=== PATIENT | male | born 1950 | race Caucasian/White ===

== ENCOUNTER 2016-12-17 22:43 | Emergency (ER) | payer OTHER ==
[~2016-12-17] VITALS: Ht 170.2 cm; Wt 80.0 kg
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
[2016-12-17 22:59] VITALS: Ht 170.2 cm; Wt 80.0 kg
[2016-12-17] MEDS ORDERED: SOD CHLORIDE 0.9% 1,000 ML IV STA (23:28)
[2016-12-18 00:12] LABS: POTASSIUM 4.3 mmol/L (3.5-5.1)
[2016-12-18 00:15] LABS: CREATININE 1.46 mg/dl (0.61-1.24)
[2016-12-18 00:16] LABS: CALCIUM 9.3 mg/dl (8.4-10.2)
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
--- NOTE | 2016-12-18 01:33 | RADRPT ---
PROCEDURE: CT abdomen and pelvis without intravenous contrast. CLINICAL INDICATION: Trauma.. TECHNIQUE: CT of the abdomen/pelvis was performed utilizing axial images with reconstructions in s agittal and coronal planes. The administered radiation dose is CTDI 6.3 mGy, DLP 352.1 mGy-cm. COMPARISON: No pertinent prior examinations were submitted for comparison. FINDINGS: Visualized Chest: The visualized lung bases are clear. Abdomen: The spleen, pancreas, and adrenal glands are unremarkable. The liver is diffusely decreased in at tenuation, compatible with hepatic steatosis. The gallbladder is distended. There is mild perichole cystic fatty infiltration. The kidneys are without hydronephrosis. No definite urinary calculi are seen. There is no evidence of bowel obstruction. The appendix is normal. No intra-abdominal free air is seen. Diverticula are noted along the sigmoid colon without evidence of diverticulitis. There is a large left inguinal hernia which contains part of the sigmoid colon without evidence of obstruction . There is no evidence of intra-abdominal adenopathy or free fluid. Vascular calcifications are noted within the aorta and its branches. Pelvis: There is no evidence of pelvic adenopathy of free fluid. The prostate and bladder are unremarkable. Osseous structures: Unremarkable. IMPRESSION: No evidence of acute traumatic injury within the abdomen or pelvis. Hepatic steatosis. Sigmoid colonic diverticulosis. Large left inguinal hernia which contains part of the sigmoid colon without evidence of obstruction. RPTAT: HIKT .Pravin Morgan MD, Date Time Electronically viewed and signed by .Pravin Morgan MD, on 12/18/2016 01:32 .T/
--- NOTE | 2016-12-18 01:34 | RADRPT ---
PROCEDURE: Noncontrast CT Head. CLINICAL INDICATION: Pain. TECHNIQUE: Noncontrast CT of the head was obtained. The administered radiation dose was CTDI vol = 45 mGy, DLP = 720.2 mGy-cm. COMPARISON: No pertinent prior examinations were submitted for comparison. FINDINGS: The ventricles and cortical sulci are mild to moderately enlarged. There is mild to moderate decrea sed attenuation within the periventricular and subcortical white matter compatible with chronic micr ovascular changes. There is no acute intracranial hemorrhage or extra-axial fluid collection. There is no mass effect . No midline shift is identified. There is no loss of call-white differentiation to suggest acute in farction. The orbits are within normal limits. The paranasal sinuses are well aerated. No destructive osseous lesion is identified. IMPRESSION: No acute findings. Mild to moderate diffuse parenchymal volume loss and chronic microvascular bland es. RPTAT: HIKT .Pravin Morgan MD, MD Date Time Electronically viewed and signed by .Pravin Morgan MD, on 12/18/2016 01:34 .T/
[2016-12-18] MEDS ORDERED: TRAM50TA2 PO (01:55)
[2016-12-18] MEDS ORDERED: HYDROmorphONE 1 MG/ML SYG IV STA (01:56)
[2016-12-18] MEDS ORDERED: ONDANSETRON 4 MG INJ IV STA (01:56)
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
[2016-12-18 05:21] VITALS: BP 140/80; PULSE 70; RESP 16
== END 2016-12-18 05:24 | disposition home or self-care (01) ==
LOC: E/R 22:43
DX: S00.83XA Contusion of other part of head, initial encounter (principal); S39.81XA Other specified injuries of abdomen, initial encounter; S60.211A Contusion of right wrist, initial encounter; F17.210 Nicotine dependence, cigarettes, uncomplicated; I10 Essential (primary) hypertension; R40.2142 Coma scale, eyes open, spontaneous, at arrival to emergency department; R40.2252 Coma scale, best verbal response, oriented, at arrival to emergency department; R40.2362 Coma scale, best motor response, obeys commands, at arrival to emergency department; Y08.89XA Assault by other specified means, initial encounter
CPT/HCPCS: 70450; 73110; 74176; 80048; 96361; 96374; 96375; 99285; J1170; J2405; J7030